=== PATIENT | female | born 1990 | race Caucasian/White ===

== ENCOUNTER → 2020-11-24 | Outpatient (CLI) | payer OTHER ==
[~2020-11-24] MED LIST: ALPR0.254 PO; MONT10TA17 PO; VALA10007 PO
== END | disposition home or self-care (01) ==
LOC: STAR 14:53
PROVIDERS: ATTEND Obstetrics & Gynecology
DX: Z20.822 Contact with and (suspected) exposure to COVID-19 (principal)
CPT/HCPCS: U0003

== ENCOUNTER 2020-11-28 09:51 | Day surgery (SDC) | payer OTHER ==
[~2020-11-28] VITALS: Ht 154.9 cm; Wt 62.0 kg
[2020-11-28 10:53] VITALS: BP 125/72
[2020-11-28] MEDS ORDERED: CHLORHEXIDINE 15 ML UDC PO ONE (11:00)
[2020-11-28] MEDS ORDERED: LACTATED RINGERS 1,000 ML IV SCH (11:00)
[2020-11-28] MEDS ORDERED: CHLORHEXIDINE 15 ML UDC ONE (11:01)
[2020-11-28 11:04] LABS: HCG UR SG 1.014 (1.003-1.030)
[2020-11-28] MEDS ORDERED: SILVER NITRATE STICK TP ONE (11:12)
[2020-11-28] MEDS ORDERED: ONDANSETRON 2MG/ML, 2ML ONE (12:07)
[2020-11-28] MEDS ORDERED: METOCLOPRAMIDE 5 MG/ML, 2ML ONE (12:07)
[2020-11-28] MEDS ORDERED: DEXAMETHASONE 4 MG/ML, 1ML ONE (12:07)
[2020-11-28] MEDS ORDERED: MIDAZOLAM 1 MG/ML, 2ML ONE (12:16)
[2020-11-28] MEDS ORDERED: FENTANYL PF 250 MCG/5ML ONE (12:16)
[2020-11-28] MEDS ORDERED: PROPOFOL 50 ML ONE ×2 (12:19→12:42)
[2020-11-28] MEDS ORDERED: LIDOCAINE 1%, 20ML ONE (12:26)
[2020-11-28] MEDS ORDERED: EPINEPHRINE 1 MG/ML, 1ML ONE (12:26)
[2020-11-28] MEDS ORDERED: MEPERIDINE/PF 50 MG/ML ONE (12:32)
[2020-11-28] MEDS ORDERED: IBUP-1223 PO (13:37)
[2020-11-28] MEDS ORDERED: OXYC1TAB14 PO (13:37)
== END 2020-11-28 15:00 | disposition home or self-care (01) ==
LOC: OUT 09:51
PROVIDERS: ATTEND Obstetrics & Gynecology
DX: R87.613 High grade squamous intraepithelial lesion on cytologic smear of cervix (HGSIL) (principal); J45.909 Unspecified asthma, uncomplicated; F12.90 Cannabis use, unspecified, uncomplicated; Z87.891 Personal history of nicotine dependence; Z82.49 Family history of ischemic heart disease and other diseases of the circulatory system
CPT/HCPCS: 57520; 81025; 88305; 88307; J0171; J1100; J2175; J2250; J2405; J2704; J2765; J3010; J7120